=== PATIENT | female | born 1985 | race Caucasian/White ===

== ENCOUNTER 2019-07-17 00:15 | Emergency (ER) | payer OTHER, BC ==
[2019-07-17 00:35] VITALS: BP 121/91
[2019-07-17 01:12] LABS: ABSOLUTE BASOPHILS # (AUTO) 0.1 10^3/uL (0.0-0.2); ABSOLUTE EOSINOPHILS # (AUTO) 0.3 10^3/uL (0.0-0.6); ABSOLUTE LYMPHOCYTES (AUTO) 2.9 10^3/uL (0.5-4.7); ABSOLUTE MONOCYTES (AUTO) 0.7 10^3/uL (0.1-1.4); ABSOLUTE NEUT (AUTO) 4.8 10^3/uL (1.7-8.2); BASOPHILS % (AUTO) 0.6 % (0-2); EOSINOPHILS % (AUTO) 3.3 % (0-6); HEMATOCRIT 39.6 % (36.0-47.0); HEMOGLOBIN 13.4 g/dL (12.0-15.5); MEAN CORPUSCULAR HEMOGLOBIN 27.9 pg (27.0-33.4); MEAN CORPUSCULAR HGB CONC 33.7 g/dL (32.0-36.0); MEAN CORPUSCULAR VOLUME 83 fl (80-97); MONOCYTES % (AUTO) 8.4 % (3-13); PLATELET COUNT 271 10^3/uL (150-450); RED BLOOD COUNT 4.79 10^6/uL (3.72-5.28); RED CELL DISTRIBUTION WIDTH 13.1 % (11.5-14.0); SEGMENTED NEUTROPHILS % (AUTO) 54.7 % (42-78); TOTAL CELLS COUNTED % (AUTO) 100 %; WHITE BLOOD COUNT 8.8 10^3/uL (4.0-10.5)
[2019-07-17 01:17] LABS: ALBUMIN 4.4 g/dL (3.5-5.0); ALKALINE PHOSPHATASE 61 U/L (38-126); ANION GAP 11 (5-19); ASPARTATE AMINO TRANSFERASE 24 U/L (14-36); BILIRUBIN,DIRECT 0.2 mg/dL (0.0-0.4); BILIRUBIN,TOTAL 0.4 mg/dL (0.2-1.3); BLOOD UREA NITROGEN 18 mg/dL (7-20); CALCIUM 9.8 mg/dL (8.4-10.2); CARBON DIOXIDE 23 mmol/L (22-30); CHLORIDE 105 mmol/L (98-107); GLUCOSE 98 mg/dL (75-110); TOTAL PROTEIN 7.5 g/dL (6.3-8.2)
--- NOTE | 2019-07-17 01:58 | ER Document Report ---
ED Body Fluid Exposure - General Chief Complaint: Body Fluid Exposure Stated Complaint: SUBSTANCE IN EYE Time Seen by Provider: 07/17/19 00:23 Primary Care Provider: MAXIME DAVIS MD [ACTIVE STAFF] - Follow up as needed ANGLE VAZQUEZ MD [Primary Care Provider] - Follow up as needed Notes: Patient is a 33-year-old female presents to the emergency department for getting emesis in bilateral eyes. Patient voices she is an employee of [employer]. States she had a patient that allegedly overdosed after snorting Percocet. Said patient on scene had multiple episodes of vomiting and inevitably got in the patient's eye. Patient voices she flushed both of her eyes on scene. PEP protocol started. Patient denies any medical problems, denies taking any medications, denies any allergies, is up-to-date on immunization. TRAVEL OUTSIDE OF THE [place] IN LAST 30 DAYS: No - Related Data Allergies/Adverse Reactions: No Known Allergies Allergy (Verified 01/21/15 23:03) Past Medical History - General Information source: Patient - Social History Smoking Status: Unknown if Ever Smoked Chew tobacco use (# tins/day): No Frequency of alcohol use: None Drug Abuse: None Family History: Reviewed & Not Pertinent Patient has suicidal ideation: No Patient has homicidal ideation: No - Immunizations Hx Diphtheria, Pertussis, Tetanus Vaccination: Yes Review of Systems - Review of Systems Constitutional: denies: Fever EENT: denies: Eye pain, Eye discharge, Blurred vision, Double vision Cardiovascular: No symptoms reported Respiratory: No symptoms reported Gastrointestinal: No symptoms reported Genitourinary: No symptoms reported Female Genitourinary: No symptoms reported Musculoskeletal: No symptoms reported Skin: No symptoms reported Hematologic/Lymphatic: No symptoms reported Neurological/Psychological: No symptoms reported Physical Exam - Vital signs Vitals: Temp Pulse Resp BP Pulse Ox 98.3 F 87 24 H 121/91 H 99 07/17/19 00:34 07/17/19 00:34 07/17/19 00:34 07/17/19 00:34 07/17/19 00:34 - Notes Notes: GENERAL: Alert, interacts well. No acute distress. HEAD: Normocephalic, atraumatic. EYES: Pupils equal, round, and reactive to light. Extraocular movements intact and painless. No conjunctival injection noted bilaterally. ENT: Oral mucosa moist, tongue midline. NECK: Full range of motion. Supple. Trachea midline. LUNGS: Clear to auscultation bilaterally, no wheezes, rales, or rhonchi. No respiratory distress. HEART: Regular rate and rhythm. No murmur ABDOMEN: Soft, non-tender. Non-distended. Bowel sounds present in all 4 quadrants. EXTREMITIES: Moves all 4 extremities spontaneously. No edema, normal radial and dorsalis pedis pulses bilaterally. No cyanosis. BACK: no cervical, thoracic, lumbar midline tenderness. No saddle anesthesia, normal distal neurovascular exam. NEUROLOGICAL: Alert and oriented x3. Normal speech. cranial nerves II through XII grossly intact PSYCH: Normal affect, normal mood. SKIN: Warm, dry, normal turgor. No rashes or lesions noted. Course - Re-evaluation Re-evalutation: 07/17/19 01:53 Patient's HIV testing was negative in the emergency department. Patient's hCG testing was positive. Discussed both results with patient at bedside. Discussed with patient unfortunately prophylactic medications are not warranted in . Discussed continued follow-up with primary care provider as needed. Hepatitis panel pending. Bilateral eyes irrigated by nursing staff. - Vital Signs Vital signs: Temp Pulse Resp BP Pulse Ox 98.3 F 87 24 H 121/91 H 99 07/17/19 00:34 07/17/19 00:34 07/17/19 00:34 07/17/19 00:34 07/17/19 00:34 - Laboratory Result Diagrams: 07/17/19 00:22 07/17/19 00:22 Laboratory results interpreted by me: 07/17/19 00:22 Serum HCG, Qual POSITIVE H Discharge - Discharge Clinical Impression: History of exposure to hazardous bodily fluids Qualifiers: Weeks of gestation: less than 8 weeks Qualified Code(s): Z3A.01 - Less than 8 weeks gestation of Condition: Stable Disposition: HOME, SELF-CARE Instructions: ([facility]) Additional Instructions: As we discussed you have been seen and treated in the emergency department for exposure to bodily fluids. Your HIV testing is negative at today's visit. Your hepatitis panel is still pending. Please make sure he follow-up with culture results [id number]. At today's visit it was also found that you are . Please follow-up with your primary care provider and [facility] [employer] at your earliest convenience. Return to the emergency room for any concerns. Referrals: ANGLE VAZQUEZ MD [Primary Care Provider] - Follow up as needed MAXIME DAVIS MD [ACTIVE STAFF] - Follow up as needed
[2019-07-18 07:37] LABS: HEPATITS B SURFACE ANTIGEN Negative (Negative)
[2019-07-18 08:14] LABS: HEPATITIS C VIRUS ANTIBODY <0.1 s/co ratio (0.0-0.9)
== END 2019-07-17 01:56 | disposition home or self-care (01) ==
LOC: ER 00:15
DX: Z77.21 Contact with and (suspected) exposure to potentially hazardous body fluids (principal); Z32.01 Encounter for pregnancy test, result positive
CPT/HCPCS: 36415; 80053; 80074; 84703; 85025; 86701; 99283